=== PATIENT | male | born 1940 | race Native Hawaiian/Other Pacific Islander ===

== ENCOUNTER 2019-05-22 19:03 | Emergency (ER) | payer OTHER ==
[~2019-05-22] VITALS: Ht 162.6 cm; Wt 45.4 kg
[~2019-05-22 19:03] MED LIST: ASCO500T18 PO; DEMADEX20 MG PO; DIVALPROEX125 MG PO; FE TABS325 MG PO; LEVO0.1T6 PO; MULTIVITAMI1 PO; PEPCID20 MG PO; POTASSIUM CHLO20 ME1 PO; REMERON30 MG PO; SEROQUEL100 MG PO; SEROQUEL25 MG PO; ZINC220C4 PO
[2019-05-22 19:31] LABS: PLATELET COUNT 177 K/uL (142-355)
[2019-05-22 19:32] LABS: POTASSIUM 3.4 mmol/L (3.6-5.2)
[2019-05-22 20:18] VITALS: BP 154/61; TEMP 98.2
[2019-05-23] MEDS ORDERED: TIROSINT150 MCG PO (04:49)
[2019-05-23] MEDS ORDERED: DAILY VITE PO (04:50)
[2019-05-23] MEDS ORDERED: NAMENDA XR28 MG PO (04:51)
[2019-05-23] MEDS ORDERED: TORSEMIDE20 MG PO ×2 (04:51→04:59)
[2019-05-23] MEDS ORDERED: DIVA125C PO (04:52)
[2019-05-23] MEDS ORDERED: VITAMIN D33000 UNIT PO (04:52)
[2019-05-23] MEDS ORDERED: POTA20TA4 PO (04:53)
[2019-05-23] MEDS ORDERED: PEPCID20 MG PO (04:54)
[2019-05-23] MEDS ORDERED: MIRTAZAPINE7.5 MG PO (04:54)
[2019-05-23] MEDS ORDERED: TORSEMIDE5 MG PO (04:55)
[2019-05-23] MEDS ORDERED: THERA TEARS A0.025 % OPTH (04:57)
[2019-05-23] MEDS ORDERED: TYLENOL325 M1 PO (04:58)
== END 2019-05-22 20:18 | disposition other institution (70) ==
LOC: ED 19:03
PROVIDERS: Student in an Organized Health Care Education/Training Program
DX: F03.91 Unspecified dementia, unspecified severity, with behavioral disturbance (principal); E16.1 Other hypoglycemia; Z04.6 Encounter for general psychiatric examination, requested by authority
CPT/HCPCS: 80053; 80164; 81000; 85027; 93005; 99283